=== PATIENT | female | born 1965 | race African-American/Black ===

== ENCOUNTER 2020-10-23 21:01 | Emergency (ER) | payer BC, SELFPAY ==
--- NOTE | ~2020-10-23 | XR_ITS ---
EXAMINATION: XR chest 1V portable EXAM DATE: 10/23/2020 21:41 INDICATION: Palpitations for one week. History of asthma. TECHNIQUE: Portable AP frontal chest x-ray was obtained. Comparison is made to prior examination from 05/01/2016. FINDINGS: There is low lung volume continued into the mildly enlarged cardiac silhouette, along with the AP technique. No confluent consolidation, pneumothorax or pleural effusion suspected. There are n o osseous abnormalities identified. IMPRESSION: 1. Low lung volume. 2. No acute cardiopulmonary findings. Reviewed, dictated and finalized at location [facility]
[2020-10-23 21:06] VITALS: BP 141/100; PULSE 85; RESP 18; TEMP 36.2; O2SAT 100
--- NOTE | 2020-10-23 21:31 | ECG_ITS ---
Measurements Intervals [place] Rate: 66 P: 39 [place]: 153 QRS: 30 QRSD: 112 T: 252 QT: 431 QTc: 454 Interpretive Statements SINUS RHYTHM POSSIBLE LEFT ATRIAL ENLARGEMENT LEFT VENTRICULAR HYPERTROPHY WITH ST-T CHANGE BORDERLINE ST-T WAVE ABNORMALITY- DIFFUSE LEADS BASELINE ARTIFACT- I, II, AVR, V3, V5 BORDERLINE ECG Electronically Signed On 10-24-2020 7:59:43 COMPUTER LAB ASSISTANT by Ron Murillo D.O.
[2020-10-23 21:46] LABS: Basophils Percent Auto 0.3 % (0.2-1.2); Eosinophils Absolute Auto 0.2 K/mm3 (0-0.3); Eosinophils Percent Auto 3.7 % (0-4.4); Hematocrit 35.7 % (37.0-47.0); Hemoglobin 12.2 g/dL (12.0-15.0); Immature Granulocyte Absolute 0.01 K/mm3 (0.00-0.031); Immature Granulocyte Percent A 0.2 % (0-0.5); Mean Corpuscular HGB Conc 34.2 g/dl (32-36); Mean Corpuscular Hemoglobin 30.3 pg (26-34); Mean Corpuscular Volume 88.6 fl (80-100); Mean Platelet Volume 10.2 fl (7.4-10.4); Monocytes Absolute Auto 0.5 K/mm3 (0.1-0.6); Monocytes Percent Auto 8.2 % (2.6-8.5); Neutrophils Absolute Auto 1.8 K/mm3 (1.3-6.7); Neutrophils Percent Auto 29.6 % (45.5-73.1); Platelet Count Result 226 k/mm3 (150-375); Red Blood Count 4.03 M/mm3 (4.2-5.4); Red Cell Distribution Width 13.3 % (11.5-14.5); White Blood Count 6.2 K/mm3 (4.5-10.0)
[2020-10-23 21:58] LABS: Alanine Aminotransferase 17 U/L (4-35); Albumin Level 4.3 g/dL (3.5-5.1); Alkaline Phosphatase 91 U/L (38-126); Anion Gap 8 mmol/L (8-16); Aspartate Amino Transferase 32 U/L (14-36); Bilirubin,Total 0.4 mg/dL (0.2-1.3); Blood Urea Nitrogen 20 mg/dL (7-17); Calcium 9.4 mg/dL (8.4-10.2); Carbon Dioxide 29 mmol/L (22-30); Chloride 104 mmol/L (98-107); Estimated CRCL calculation 48 ml/min; Estimated Glomerular Filt Rate 44; Glucose 93 mg/dL (65-105); Potassium 3.8 mmol/L (3.4-5.0); Sodium 141 mmol/L (137-145)
--- NOTE | 2020-10-23 22:05 | ED.GENADULT ---
HPI - General Adult General Chief complaint: Arrhythmia/Palpitations Stated complaint: Palpitations Time Seen by Provider: 10/23/20 21:26 History of Present Illness HPI narrative: Patient is a 55-year-old female who presents emerged part with chief complaint of palpitations. Patient reports that over the last several days she has felt as though her heart has been beating funny she is describes it as occasionally she will skip a beat and other times it feels as though it is fluttering. Patient states that she is not had any chest pain denies diaphoresis states she felt a little lightheaded at times. The patient denies syncope. Patient reports that she called her primary care physician's office who recommended that she come to the emergency department for further evaluation Related Data Allergies Allergy/AdvReac Type Severity Reaction Status Date / Time shellfish derived Allergy Unknown Verified 05/01/16 16:15 Review of Systems Review of Systems: Narrative: CONSTITUTIONAL: Denies fever, chills, or sweats. EYES: Denies visual changes, redness, or discharge. ENT: Denies rhinorrhea, congestion, sore throat, or otalgia. CARDIOVASCULAR: Denies chest pain, or edema. RESPIRATORY: Denies cough or dyspnea. GASTROINTESTINAL: Denies abdominal pain, nausea, vomiting, or diarrhea. GENITOURINARY: Denies dysuria or hematuria. SKIN: Denies rash or itching. MUSCULOSKELETAL: Denies back pain, joint pain, or myalgia. NEUROLOGIC: Denies headache, numbness, or weakness. PSYCHIATRIC: Denies anxiety or depression. A 10 system review of systems was completed on the patient and is negative except for what is stated in the HPI. Nursing and ancillary documentation was reviewed. PMFSH Comments Patient has past medical history for hypertension Social history the patient denies smoking or illicit drug use Exam Narrative: Exam Narrative: GENERAL: Well-appearing, well-nourished, and in no acute distress. HEAD: Normocephalic, atraumatic. EYES: PERRLA and EOMI. ENT: Nares clear, no rhinorrhea or epistaxis. Mucous membranes moist. NECK: Supple. CHEST: Clear to auscultation. No respiratory distress. HEART: Regular rate and rhythm. No murmur heard. Normal peripheral pulses. ABDOMEN: Soft, nontender, nondistended, normal active bowel sounds. EXTREMITIES: Normal range of motion. No edema. SKIN: Warm, dry, no rash. NEURO: No focal deficits. Alert and oriented x3. PSYCH: Normal mood and affect. Course Course Emergency Course: EKG is sinus rhythm rate of 66 While observing the patient on the monitor the patient has had several PVCs the patient has had no other dysrhythmia. Vital Signs Vital signs: Vital Signs Temperature 36.2 C L 10/23/20 21:06 Pulse Rate 85 10/23/20 21:06 Respiratory Rate 18 10/23/20 21:06 Blood Pressure 141/100 H 10/23/20 21:06 Pulse Oximetry 100 10/23/20 21:06 Temperature 36.2 C L 10/23/20 21:06 Pulse Rate 86 10/23/20 22:56 Respiratory Rate 16 10/23/20 22:56 Blood Pressure 127/83 10/23/20 22:56 Pulse Oximetry 98 10/23/20 22:56 Medical Decision Making Vital Signs Vital Signs: Vital Signs Temperature 36.2 C L 10/23/20 21:06 Pulse Rate 85 10/23/20 21:06 Respiratory Rate 18 10/23/20 21:06 Blood Pressure 141/100 H 10/23/20 21:06 Pulse Oximetry 100 10/23/20 21:06 Temperature 36.2 C L 10/23/20 21:06 Pulse Rate 86 10/23/20 22:56 Respiratory Rate 16 10/23/20 22:56 Blood Pressure 127/83 10/23/20 22:56 Pulse Oximetry 98 10/23/20 22:56 Lab Data Result diagrams: 10/23/20 21:40 10/23/20 21:40 Labs: Lab Results 10/23/20 10/23/20 Range/Units 21:40 21:40 WBC 6.2 (4.5-10.0) K/mm3 RBC 4.03 L (4.2-5.4) M/mm3 Hgb 12.2 (12.0-15.0) g/dL Hct 35.7 L (37.0-47.0) % MCV 88.6 (80-100) fl MCH 30.3 (26-34) pg MCHC 34.2 (32-36) g/dl RDW 13.3 (11.5-14.5) % Plt Count 226 (150-375) k/mm3 MPV 10.2 (7.4
[2020-10-23 22:09] LABS: Troponin I < 0.012 ng/mL (0.000-0.034)
[2020-10-23 22:56] VITALS: BP 127/83; PULSE 86; RESP 16; O2SAT 98
[2020-10-23] MEDS: SODIUM CHLORIDE 0.9% IV 1,000 ML 999 ML IV CONT (23:42)
== END 2020-10-24 00:15 | disposition home or self-care (01) ==
PROVIDERS: Emergency Provider Emergency Medicine; PCP Internal Medicine
DX: R00.2 Palpitations (principal); I49.3 Ventricular premature depolarization; R94.31 Abnormal electrocardiogram [ECG] [EKG]; I51.7 Cardiomegaly
CPT/HCPCS: 36415; 71045; 80053; 84484; 85025; 93005; 96360; 99284; J7030

== ENCOUNTER 2021-06-27 19:45 | Emergency (ER) | payer BC, SELFPAY ==
[2021-06-27] VITALS (9 sets, daily range): BP systolic 112–123; BP diastolic 79–82; PULSE 43–65; RESP 16–18; TEMP 36.2–36.9; O2SAT 99–100
--- NOTE | ~2021-06-27 | CT_ITS ---
EXAMINATION: CT brain wo con DATE: 06/27/2021 20:10 INDICATION: Right-sided headache. TECHNIQUE: Computed tomography (CT) of the head was performed without intravenous contrast. The mA wa s adjusted according to patient size. Iterative reconstruction technique was employed. The dose-lengt h product was 681.00 mGy-cm. COMPARISON: None FINDINGS: There is no intracranial hemorrhage, acute infarction, or abnormal intracranial mass lesion . The ventricles are normal in size. There is mucosal thickening in the paranasal sinuses. The mastoi d air cells are normal. IMPRESSION: 1. Normal brain. Reviewed, dictated and finalized at location A. IMPRESSION: 1. Normal brain.
--- NOTE | 2021-06-27 19:50 | ED.HA ---
HPI - Headache General Chief Complaint: Headache Stated Complaint: HEADACHE Time Seen by Provider: 06/27/21 19:49 History of Present Illness HPI Narrative: 55 yo female w/ h/o htn presents to the ED c/o headache. She has has a severe headache since yesterday. Sudden onset. located in the right occiput. Radiates to the right amish. Occasionally on the left as well. Associated with photophobia. She has never had this type of headache before. She tried tylenol yesterday. She reports intermittent migrating numbness for the past few weeks, none currently. No weakness, confusion, incoordination. Related Data Home Medications Medication Instructions Recorded Confirmed losartan-hydrochlorothiazide tablet 06/27/21 pantoprazole PO 06/27/21 Allergies Allergy/AdvReac Type Severity Reaction Status Date / Time shellfish derived Allergy Unknown Unknown Verified 06/27/21 21:47 Review of Systems Review of Systems: All systems reviewed & are unremarkable except as noted in HPI and below Constitutional: Constitutional: Denies chills, Denies fever(s) and Denies weakness Eyes: Eyes: Reports no additional eye complaints and Reports photophobia ENT: Denies vertigo and Denies sore throat Cardiovascular: Cardiovascular: Denies chest pain Respiratory: Respiratory: Denies dyspnea Gastrointestinal: Gastrointestinal: Denies abdominal pain and Denies nausea Genitourinary: Genitourinary: Reports no additional female genitourinary complaints Neurologic: Reports system reviewed and no additional complaints, except as documented [facility] Past Medical History Medical History HTN (hypertension) Social History Social History Smoking status: Never smoker Substance use: never Exam Const: General: healthy appearing, no acute distress and alert Orientation/consciousness: patient oriented x3 HENMT: Head: normal to inspection Resp: Effort & Inspection: normal respiratory effort Auscultation: clear to auscultation bilaterally Cardio: Rate: regular rate Rhythm: regular rhythm GI: GI Palp: Yes Soft to palpation and No Tenderness to palpation present (GI) Skin: General skin exam: normal color Neuro: General: patient oriented x3, moves all extremities, no focal motor deficits and CN's II-XI intact bilaterally Speech: normal speech Gait exam (Neuro): Normal gait present Extrem: General: normal to inspection Psych: Affect: Anxious affect present Course Vital Signs Vital signs: Vital Signs Temperature 36.9 C 06/27/21 21:39 Pulse Rate 43 L 06/27/21 21:39 Respiratory Rate 16 06/27/21 21:39 Blood Pressure 123/82 06/27/21 21:39 Pulse Oximetry 100 06/27/21 21:39 Temperature 36.9 C 06/27/21 21:39 Pulse Rate 43 L 06/27/21 21:39 Respiratory Rate 16 06/27/21 21:39 Blood Pressure 123/82 06/27/21 21:39 Pulse Oximetry 100 06/27/21 21:39 MDM - Headache MDM Narrative Medical decision making narrative: CT negative. Pain improving. Differential Diagnosis Differential diagnosis: Likely migraine, tension headache and subarachnoid hemorrhage Medical Records Attestation: I reviewed the patient's medical records. Lab Data Attestation: I reviewed the patient's lab results. Imaging Data Radiologist's impression: ITS Impressions Head CT 06/27/21 20:15 IMPRESSION: 1. Normal brain. Discharge Plan Discharge Clinical Impression: Headache Qualifiers: Headache type: unspecified Headache chronicity pattern: acute headache Intractability: not intractable Qualified Code(s): R51.9 - Headache, unspecified Patient Disposition: Home, Self-Care Condition: Stable Instructions: Acute Headache (ED) Prescriptions: No Action pantoprazole 40 mg tablet,delayed release (DR/EC) PO RF: 0 losartan-hydrochlorothiazide 50-12.5 mg tablet RF: 0 Follow-up/Refer
[2021-06-27] MEDS: METOCLOPRAMIDE HCL INJ 10 MG/2 ML VIAL IV PUSH (20:29)
[2021-06-27] MEDS: DEXAMETHASONE SOD PHOS INJ 4 MG/ML VIAL 10 MG IV PUSH (20:29)
[2021-06-27] MEDS: diphenhydrAMINE HCl INJ 50 MG/ML VIAL 25 MG IV PUSH (20:29)
[2021-06-27] MEDS: SODIUM CHLORIDE 0.9% IV 1,000 ML 999 ML IV CONT (20:29)
[2021-06-27] MEDS: KETOROLAC 30 MG/ML VIAL (*BKC) IV PUSH (21:34)
== END 2021-06-27 23:20 | disposition home or self-care (01) ==
PROVIDERS: Emergency Provider Emergency Medicine; PCP Internal Medicine
DX: R51.9 Headache, unspecified (principal); I10 Essential (primary) hypertension
CPT/HCPCS: 70450; 96361; 96374; 96375; 99284; J0131; J1100; J1200; J1885; J2765; J7030

== ENCOUNTER 2021-07-20 19:24 | Emergency (ER) | payer BC, SELFPAY ==
--- NOTE | ~2021-07-20 | XR_ITS ---
XR chest 1V portable DATE: 07/20/2021 20:56 INDICATION: Cough, fever, chills for 2 days. Hypertension. TECHNIQUE: Portable upright AP chest on 07/20/2021 at 1958 hours COMPARISON: 10/23/2020 and 05/01/2016 portable AP chest FINDINGS: There is chronic elevation left leaf of diaphragm 10/23/2020. Heart size appears borderline, not optimally evaluated on AP projection because of magnification. No pulmonary infiltrate or consolidation, pleural effusion or pulmonary vascular congestion or pneumo thorax. IMPRESSION: Chronic elevation of left diaphragm Reviewed, dictated and finalized at location A.
[2021-07-20 19:40] VITALS: BP 129/84; PULSE 99; RESP 16; TEMP 37.5; O2SAT 99
--- NOTE | 2021-07-20 20:58 | ED.GENADULT ---
HPI - General Adult General Chief complaint: Upper Respiratory Infection Stated complaint: COVID symptoms Time Seen by Provider: 07/20/21 20:23 Source: patient History of Present Illness HPI narrative: Patient is a 55 y/o female complaining cough, running nose and chills for last 2 days. She describes her cough as a dry cough. There is no alleviating or exacerbating factor. She has no fever, vomiting or diarrhea. Related Data Home Medications Medication Instructions Recorded Confirmed losartan-hydrochlorothiazide tablet 06/27/21 pantoprazole PO 06/27/21 Allergies Allergy/AdvReac Type Severity Reaction Status Date / Time shellfish derived Allergy Unknown Unknown Verified 06/27/21 21:47 Review of Systems Constitutional: Constitutional: Reports chills, Denies fever(s), Denies headache(s) and Denies weakness Eyes: Eyes: Denies blurry vision ENT: Denies headache(s), Reports nasal discharge and Denies neck pain Cardiovascular: Cardiovascular: Denies chest pain and Denies dyspnea Respiratory: Respiratory: Reports cough and Denies dyspnea Gastrointestinal: Gastrointestinal: Denies abdominal pain, Denies diarrhea, Denies nausea and Denies vomiting Genitourinary: Genitourinary: Denies hematuria and Denies dysuria Musculoskeletal: Musculoskeletal: Denies back pain and Denies neck pain Neurologic: Denies headache(s) and Denies weakness [facility] Past Medical History Medical History HTN (hypertension) Social History Social History Smoking status: Never smoker Substance use: never Exam Const: General: no acute distress and well developed Orientation/consciousness: oriented to person, oriented to place, oriented to time and patient oriented x3 HENMT: Head: normocephalic Ears: external ears normal General nose exam: Normal external nose present Eyes: General: appearance normal, both eyes and all related structures Conjunctivae: conjunctivae normal Neck: Neck: normal visual inspection and full ROM Chest: Chest palpation & inspection: normal inspection of the chest and no tenderness Resp: Effort & Inspection: normal respiratory effort Auscultation: clear to auscultation bilaterally Cardio: Rate: regular rate Rhythm: regular rhythm GI: GI Palp: No abdominal tenderness and Yes Soft to palpation Skin: General skin exam: normal color and turgor normal Neuro: General: oriented to person, oriented to place, oriented to time and patient oriented x3 Cognition (Neuro): normal cognition Extrem: General: normal to inspection, full ROM and no pedal edema Psych: Appearance: grossly normal Mental Status: mental status grossly normal Affect: normal affect Course Vital Signs Vital signs: Vital Signs Temperature 37.5 C 07/20/21 19:40 Pulse Rate 99 07/20/21 19:40 Respiratory Rate 16 07/20/21 19:40 Blood Pressure 129/84 07/20/21 19:40 Pulse Oximetry 99 07/20/21 19:40 Temperature 37.3 C 07/20/21 22:11 Pulse Rate 88 07/20/21 22:12 Respiratory Rate 18 07/20/21 22:12 Blood Pressure 133/78 07/20/21 22:12 Pulse Oximetry 96 07/20/21 22:12 Medical Decision Making Vital Signs Vital Signs: Vital Signs Temperature 37.5 C 07/20/21 19:40 Pulse Rate 99 07/20/21 19:40 Respiratory Rate 16 07/20/21 19:40 Blood Pressure 129/84 07/20/21 19:40 Pulse Oximetry 99 07/20/21 19:40 Temperature 37.3 C 07/20/21 22:11 Pulse Rate 88 07/20/21 22:12 Respiratory Rate 18 07/20/21 22:12 Blood Pressure 133/78 07/20/21 22:12 Pulse Oximetry 96 07/20/21 22:12 Lab Data Result diagrams: 07/20/21 20:58 07/20/21 20:58 Labs: Lab Results 07/20/21 07/20/21 07/20/21 Range/Units 20:58 20:58 21:34 WBC 5.0 (4.5-10.0) K/mm3 RBC 3.75 L (4.2-5.4) M/mm3 Hgb 11.3 L (12.0-15.0) g/dL Hct 33.7 L (37.0-47.0) % MCV
[2021-07-20 21:03] LABS: Basophils Percent Auto 0.2 % (0.2-1.2); Eosinophils Absolute Auto 0.2 K/mm3 (0-0.3); Eosinophils Percent Auto 3.6 % (0-4.4); Hematocrit 33.7 % (37.0-47.0); Hemoglobin 11.3 g/dL (12.0-15.0); Immature Granulocyte Absolute 0.01 K/mm3 (0.00-0.031); Immature Granulocyte Percent A 0.2 % (0-0.5); Lymphocytes Absolute Auto 1.75 K/mm3 (0.9-3.2); Lymphocytes Percent Auto 35.3 % (18.3-44.2); Mean Corpuscular HGB Conc 33.5 g/dl (32-36); Mean Corpuscular Hemoglobin 30.1 pg (26-34); Mean Corpuscular Volume 89.9 fl (80-100); Mean Platelet Volume 9.1 fl (7.4-10.4); Monocytes Absolute Auto 0.6 K/mm3 (0.1-0.6); Monocytes Percent Auto 12.5 % (2.6-8.5); Neutrophils Absolute Auto 2.4 K/mm3 (1.3-6.7); Neutrophils Percent Auto 48.2 % (45.5-73.1); Platelet Count Result 190 k/mm3 (150-375); Red Blood Count 3.75 M/mm3 (4.2-5.4); Red Cell Distribution Width 13.2 % (11.5-14.5)
[2021-07-20 21:19] LABS: Anion Gap 8 mmol/L (8-16); Blood Urea Nitrogen 14 mg/dL (7-17); Carbon Dioxide 28 mmol/L (22-30); Chloride 103 mmol/L (98-107); Estimated CRCL calculation 47 ml/min; Estimated Glomerular Filt Rate 44; Glucose 97 mg/dL (65-110); Sodium 139 mmol/L (137-145)
[2021-07-20 21:56] LABS: EDCOVIDSCREEN Positive (Negative)
[2021-07-20 22:11] VITALS: BP 130/70; PULSE 78; RESP 18; TEMP 37.3; O2SAT 97
[2021-07-20 22:12] VITALS: BP 133/78; PULSE 88; RESP 18; O2SAT 96
== END 2021-07-20 22:16 | disposition home or self-care (01) ==
PROVIDERS: Emergency Provider Emergency Medicine; PCP Internal Medicine
DX: U07.1 COVID-19 (principal); I10 Essential (primary) hypertension
CPT/HCPCS: 36415; 71045; 80048; 85025; 87426; 99283; C9803

== ENCOUNTER 2021-09-30 01:10 | Day surgery (SDC) | payer BC, SELFPAY ==
[2021-09-21 13:42] VITALS: BMI 32.6
[2021-09-30 08:29] VITALS: BP 129/81; PULSE 61; RESP 17; TEMP 36.2; O2SAT 100
[2021-09-30] MEDS: LACTATED RINGERS 1,000 ML 150 ML IV CONT (08:41)
--- NOTE | 2021-09-30 08:45 | WPDANESEPPF ---
Anes - Initial Pre Proc Eval Procedure: Operation Date: 09/30/21 09:45 Proposed Procedures p Screening Colonoscopy - Jose Benitez MD Date/Time: 09/30/21 08:45 Surgeon: Jose Benitez MD Pre Op Diagnosis: neoplasm screening Patient Data Age: 56 Gender: F Height: 1.73 m Weight: 96.3 kg Last Vital Signs Temp 36.2 C L 09/30/21 08:29 Pulse 61 09/30/21 08:29 Resp 17 09/30/21 08:29 BP 129/81 09/30/21 08:29 Pulse Ox 100 09/30/21 08:29 Allergies Allergy/AdvReac Type Severity Reaction Status Date / Time shellfish derived Allergy Unknown Unknown Verified 09/30/21 08:24 Home Medications Medication Instructions Recorded Confirmed Type losartan-hydrochlorothiazide 1 tablet PO DAILY 06/27/21 09/30/21 History pantoprazole 40 mg PO DAILY 06/27/21 09/30/21 History albuterol sulfate 90 mcg INHALATION DAILY PRN 09/21/21 09/30/21 History cholecalciferol (vitamin D3) 50 mcg PO DAILY 09/21/21 09/30/21 History multivitamin 1 tablet PO DAILY 09/21/21 09/30/21 History vitamin F22-nrqqn acid 1 tablet SUBLINGUAL DAILY 09/21/21 09/30/21 History Patient hx anesthesia problems: none Family hx anesthesia problems: none Results Review: All pre-operative results and documents have been reviewed as part of the pre-operative evaluation. [facility] Past Medical History Medical History (Updated 09/30/21 @ 08:45 by Lavell Galan MD) HTN (hypertension) Obesity Surgical History Surgical History (Updated 09/30/21 @ 08:45 by Lavell Galan MD) H/O wrist surgery Social History Social History Smoking status: Never smoker Alcohol intake: current Substance use: never Living arrangements: with family Spiritual care concerns: No Anes - Eval Final PreProcedure Day of Procedure 09/30/21 08:45 Patient weight: obese Heart: regular rate and rhythm Lungs: clear to auscultation Airway: Mallampati scale class II Neurological: alert and oriented Last oral intake: >/= 8 hours ASA classification: II Emergent: no Anesthetic plan: proceed Anesthesia type and monitoring: general GIVS and standard monitoring Results Review: All pre-operative results and documents have been reviewed as part of the pre-operative evaluation. Informed Consent: The patient's anesthetic plan and its attendant risks and benefits were discussed with the patient/family/POA. Questions were solicited and answers provided to the satisfaction of the patient/family/POA.
--- NOTE | 2021-09-30 08:56 | PM.HPGS ---
History of Present Illness History of Present Illness Consent: Risks, benefits, and alternatives have been discussed and questions answered. Patient agrees to proceed with procedure. Chief complaint: neoplasm screening Narrative: Gail Amanda is a 56 year old female here for screening colonoscopy, last one 3 years ago. Review of Systems Constitutional: Constitutional: Denies headache(s) and Denies weakness Eyes: Eyes: Denies blurry vision ENT: Reports Normal hearing present, Denies headache(s) and Denies neck pain Cardiovascular: Cardiovascular: Denies chest pain and Denies dyspnea Respiratory: Respiratory: Denies dyspnea Gastrointestinal: Gastrointestinal: Reports no additional gastrointestinal complaints Genitourinary: Genitourinary: Denies dysuria Musculoskeletal: Musculoskeletal: Denies neck pain Integumentary/Breasts: Skin/Breast: Denies dry skin Neurologic: Reports Normal hearing present, Denies headache(s) and Denies weakness Psychiatric: Psychiatric: Denies anxiety Endocrine: Endocrine: Denies change in body appearance Hematologic/Lymphatic: Hematologic/Lymphatic: Denies easy bleeding Allergic/Immunologic: Allergic/Immunologic: Denies urticaria PMFSH Past Medical History Medical History (Updated 09/30/21 @ 08:56 by Jose Benitez MD) Colon cancer screening HTN (hypertension) Obesity Surgical History Surgical History (Updated 09/30/21 @ 08:45 by Lavell Galan MD) H/O wrist surgery Social History Social History Smoking status: Never smoker Alcohol intake: current Substance use: never Living arrangements: with family Spiritual care concerns: No Meds Home Medications and Allergies Home Medications Medication Instructions Recorded Confirmed Type losartan-hydrochlorothiazide 1 tablet PO DAILY 06/27/21 09/30/21 History pantoprazole 40 mg PO DAILY 06/27/21 09/30/21 History albuterol sulfate 90 mcg INHALATION DAILY PRN 09/21/21 09/30/21 History cholecalciferol (vitamin D3) 50 mcg PO DAILY 09/21/21 09/30/21 History multivitamin 1 tablet PO DAILY 09/21/21 09/30/21 History vitamin U51-jtwdd acid 1 tablet SUBLINGUAL DAILY 09/21/21 09/30/21 History Allergies Allergy/AdvReac Type Severity Reaction Status Date / Time shellfish derived Allergy Unknown Unknown Verified 09/30/21 08:24 Vital Signs Vital Signs - 24 hr 09/30/21 08:29 Temperature 97.1 F L Pulse Rate 61 Respiratory Rate 17 Blood Pressure 129/81 Pulse Oximetry 100 Exam Const: General: comfortable and no acute distress HENMT: General nose exam: Normal nares present Eyes: General: appearance normal, both eyes and all related structures Neck: Neck: no JVD Resp: Auscultation: clear to auscultation bilaterally Cardio: Rate: regular rate Rhythm: regular rhythm GI: Inspection: non-distended GI Palp: Yes Soft to palpation Skin: General skin exam: normal color Neuro: General: gait normal Speech: normal speech Extrem: General: normal to inspection Psych: Mental Status: mental status grossly normal Assessment and Plan Assessment and plan (1) Colon cancer screening: Code(s): Z12.11 - Encounter for screening for malignant neoplasm of colon Status: Acute Assessment and Plan: colonoscopy
[2021-09-30 09:19] VITALS: BP 84/55; PULSE 69; RESP 19; O2SAT 98
[2021-09-30 09:29] VITALS: BP 105/72; PULSE 64; RESP 20; O2SAT 96
[2021-09-30 09:41] VITALS: BP 112/78; PULSE 48; RESP 20; O2SAT 96
== END 2021-09-30 09:50 | disposition home or self-care (01) ==
PROVIDERS: PCP Internal Medicine; Visit Provider Internal Medicine Gastroenterology
PROC: 0DJD8ZZ Inspection of Lower Intestinal Tract, Via Natural or Artificial Opening Endoscopic (ICD-10-PCS; CPT 45378; principal; 2021-09-30 09:45)
DX: Z12.11 Encounter for screening for malignant neoplasm of colon (principal); K57.30 Diverticulosis of large intestine without perforation or abscess without bleeding; K64.8 Other hemorrhoids; I10 Essential (primary) hypertension; Z79.51 Long term (current) use of inhaled steroids; E66.9 Obesity, unspecified; Z68.32 Body mass index [BMI] 32.0-32.9, adult
CPT/HCPCS: 45378; J2704; J7120

== ENCOUNTER 2023-01-31 15:30 | Outpatient (RCR) | payer BC, SELFPAY ==
--- NOTE | 2022-12-27 09:45 | PTOPEVAL1 ---
Assessment and note entered by Eveline Unger, PT Evaluation Information Assessment Status Evaluation Diagnosis L knee pain Onset Oct 2022 Subjective Information pain off/on in L knee for years, it pops in the knee, no injury to knee; going down the stairs, knee pops and some pain; L TKR in 2014; do not do any exercises for knees; no imaging or tests done; Reported Pain Level Pain Score Self Report Additional Pain Score Comments pain range in past week 0-7/10; burning, sharp- medial knee; increase pain stairs, stand to sit- have to use her arms; walking is OK, pain comes on with bending; decrease pain rest, use hand rails; take naproxen PRN; discussed use of heat/ice PRN; sleeping is OK; knee does not swell; Assessment PT Clinical Summary Gail has the diagnosis of L knee pain. Her history includes R TKR in 2014, R femur ORIF, R knee arthroscopy and B bunionectomy. Gradual increase in her L knee pain. 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 Has not been riding her motorcycle due to knee pain. With the evaluation, she has crepitis, popping and grinding over L knee with flexion and extension motions; she has good flexibility of her hips, knees and ankles; slight decreased strength of hip adduction and single leg standing; Skilled PT services are indicated for treatment of L knee pain--patellar tendonitis due to poor tracking; modalities for pain, therapeutic exercises to increase hip and knee strength and education for home exercises. Plan of Care Interventions Electrical Stimulation,Hot Pack/Cold Pack,Manual Therapy,Neuro Re-education,Patient/Caregiver Education,Therapeutic Activities,Therapeutic Exercise,Ultrasound,Other Other Interventions taping PT Services Indicated Yes Treatment Frequency and 1x/wk for 5 weeks Duration These treatments will address the objective and functional deficits as defined above. The patient will be advanced safely and appropriately in order for the patient to progress towards his/her prior level of function. Additional exercises will be introduced and as well as a comprehensive home exercise program upon discharge, if needed, ?to ensure carryover of functional gains achieved in the clinic. This treatment plan has been reviewed and agreement upon by the patient.
--- NOTE | 2023-01-06 16:10 | PCPTNOTE ---
Pt did not show for appt. today. Attempted to call with reminder of her next appt. and her voice mail is full.
--- NOTE | 2023-01-10 14:13 | PCPTNOTE ---
Patient called & cancelled scheduled appointment this date due to work.
--- NOTE | 2023-01-18 16:49 | PCPTNOTE ---
Patient did not show up for scheduled appointment this date. Called Pt, unable to leave voicemail due to the mail box being full. Pt is scheduled on 01/27/23 @12:30p however according to the Pt's calendar in her chart she is going to be out of town. Kept appointment due to being unable to get ahold of Pt. This is her first N/S.
--- NOTE | 2023-01-27 12:53 | PCPTNOTE ---
Patient did not show up for scheduled appointment this date. Per patient's chart she was suppose to be out of town this week. Called patient and was unable to leave a message, due to full mailbox.
--- NOTE | 2023-01-31 16:30 | PCPTNOTE ---
pt did not show for today's reeval appt;
--- NOTE | 2023-02-01 16:20 | PCPTNOTE ---
PHYSICAL THERAPY DISCHARGE 02-01-23 Attending Provider: James Padron MD Patient:Gail Amanda Date of :1965 Gail has not returned for therapy treatment since the initial PT evaluation on December 27, for the diagnosis of L knee pain. She had 3 no show and 1 canceled appointment. Therefore, she will be discharged at this time. The goals were not assessed. Thank you for referring Ms. Amanda to [facility].
== END 2023-03-14 12:44 | disposition home or self-care (01) ==
LOC: ANHPT 15:30
PROVIDERS: PCP Internal Medicine; Visit Provider Internal Medicine
DX: M25.562 Pain in left knee (principal)
CPT/HCPCS: 97161; 99199

== ENCOUNTER → 2023-07-18 15:54 | Outpatient (CLI) | payer BC, SELFPAY ==
--- NOTE | ~2023-07-18 | US_ITS ---
Renal-Bladder ultrasound Clinical History: Hypertensive chronic kidney disease Technique: Real-time sonographic imaging of the kidneys and urinary bladder was performed. Findings: The right kidney measures 10.2 cm in length and the left kidney measures 9.9 cm. There is n o hydronephrosis or renal calculus identified. Renal cortical echogenicity is within normal limits. N o renal mass lesion is identified. The urinary bladder is moderately distended at the time of this exam. No intraluminal echoes are iden tified. No abnormal wall thickening is seen. Impression: Unremarkable ultrasound of the kidneys and urinary bladder. Reviewed, dictated and finalized at location M. Impression: Unremarkable ultrasound of the kidneys and urinary bladder.
== END ==
PROVIDERS: PCP Internal Medicine Nephrology; Visit Provider Internal Medicine Nephrology
DX: I12.9 Hypertensive chronic kidney disease with stage 1 through stage 4 chronic kidney disease, or unspecified chronic kidney disease (principal); N18.32 Chronic kidney disease, stage 3b
CPT/HCPCS: 76775

== ENCOUNTER 2024-05-11 21:58 | Emergency (ER) | payer BC, SELFPAY ==
[2024-05-11 22:01] VITALS: BP 127/80; PULSE 91; RESP 20; TEMP 35.9; O2SAT 98
[2024-05-12 00:48] VITALS: BP 109/70; PULSE 61; RESP 16; O2SAT 100
[2024-05-12 01:01] LABS: Basophils Percent Auto 0.4 % (0.2-1.2); Eosinophils Absolute Auto 0.2 K/mm3 (0-0.3); Eosinophils Percent Auto 3.8 % (0-4.4); Hematocrit 34.3 % (37.0-47.0); Hemoglobin 11.3 g/dL (12.0-15.0); Immature Granulocyte Absolute 0.02 K/mm3 (0.00-0.031); Immature Granulocyte Percent A 0.4 % (0-0.5); Lymphocytes Absolute Auto 3.04 K/mm3 (0.9-3.2); Lymphocytes Percent Auto 54.9 % (18.3-44.2); Mean Corpuscular HGB Conc 32.9 g/dl (32-36); Mean Corpuscular Hemoglobin 29.1 pg (26-34); Mean Corpuscular Volume 88.4 fl (80-100); Mean Platelet Volume 10.4 fl (7.4-10.4); Monocytes Absolute Auto 0.5 K/mm3 (0.1-0.6); Monocytes Percent Auto 9.2 % (2.6-8.5); Neutrophils Absolute Auto 1.7 K/mm3 (1.3-6.7); Neutrophils Percent Auto 31.3 % (45.5-73.1); Platelet Count Result 207 k/mm3 (150-375); Red Blood Count 3.88 M/mm3 (4.2-5.4); Red Cell Distribution Width 13.3 % (11.5-14.5); White Blood Count 5.5 K/mm3 (4.5-10.0)
[2024-05-12 01:19] LABS: INR 0.9
[2024-05-12 01:27] LABS: Anion Gap 7 mmol/L (4-12); Blood Urea Nitrogen 27 mg/dL (7-17); Calcium 9.2 mg/dL (8.4-10.2); Carbon Dioxide 27 mmol/L (22-30); Chloride 107 mmol/L (98-107); Estimated CRCL calculation 39 ml/min; Estimated Glomerular Filt Rate 35; Glucose 101 mg/dL (65-110); Potassium 3.9 mmol/L (3.4-5.0); Sodium 141 mmol/L (137-145)
[2024-05-12 01:43] LABS: D Dimer 0.59 ug/mL (<0.48)
[2024-05-12 01:52] VITALS: BP 117/71; PULSE 60; RESP 16; O2SAT 100
--- NOTE | 2024-05-12 02:00 | ED.EXTPRO ---
HPI - Extremity Problem General Chief complaint: Extremity Problem,Nontraumatic Stated complaint: Left thigh pain, no injury Time Seen by Provider: 05/12/24 00:38 Source: patient Limitations: no limitations History of Present Illness HPI Narrative: Patient is a 58-year-old female presents to the emergency department complaining of left medial thigh pain. Patient states started earlier tonight around 5-6 hours ago while her niece was sitting in her, she got scared that it might be a blood clot and came in for further evaluation. Patient knows somebody had a blood clot which is why she was afraid. Patient denies history of blood clots. Patient notes that the pain is overall resolved and has not returned. Patient is being ambulatory. Patient denies any obvious injuries. Patient denies leg swelling. Patient admits to recent long distance travel on a motorcycle [place] the [place]. Patient denies chest pain, difficulty breathing, numbness, weakness. Related Data Home Medications Medication Instructions Recorded Confirmed losartan 50 mg-hydrochlorothiazide 1 tablet PO DAILY 06/27/21 05/18/23 12.5 mg tablet pantoprazole 40 mg tablet,delayed 40 mg PO DAILY 06/27/21 05/18/23 release atorvastatin 10 mg tablet 10 mg PO DAILY 05/18/23 05/18/23 bupropion HCl 300 mg 24 hr tablet, 300 mg PO QAM 05/18/23 05/18/23 extended release Allergies Allergy/AdvReac Type Severity Reaction Status Date / Time shellfish derived Allergy Unknown Unknown Verified 05/11/24 22:05 Review of Systems Review of Systems: A 10 system review of systems was completed on the patient and is negative except for what is stated in the HPI. Nursing and ancillary documentation was reviewed. REPLACED BY [facility] Past Medical History Medical History (Updated 05/12/24 @ 02:01 by Wagner Conklin DO) Asthma CKD (chronic kidney disease) Colon cancer screening Depression HTN (hypertension) Hyperlipidemia Obesity Surgical History Surgical History (System 05/23/23 @ 12:17 by Michaela Greer) H/O wrist surgery Family History Family History (System 05/23/23 @ 12:17 by Michaela Greer) Mother Diabetes mellitus Hypertension Father Hypertension Heart disease Kidney disease Social History Social History (System 05/23/23 @ 12:17 by Michaela Greer) Smoking status: Never smoker Alcohol intake: current Substance use: never Lack of Transportation: No Lack of Food: Never True Current Housing: I Have Housing Concerned About Future Housing: No Difficulty Paying Gas/Electric Bills: No Difficulty Paying for Meds: No Currently Unemployed: No Education: Master's Degree or Higher Difficulty w/ Childcare or Family Care: No Living arrangements: with family Occupation/Education: occupation Gender identity (if verbalized by the patient): Female Spiritual care concerns: No Comments At time of signature, I have reviewed and agree with nursing past medical, surgical, social and family history unless otherwise noted. Please see the nursing chart for further information. There is no relevant family history pertinent to the presenting complaint. Exam Narrative: CONST: No acute distress. Well nourished. HENMT: Head is normocephalic and atraumatic. EYES: No conjunctival icterus, injection, or pallor. PERRL. NECK: No meningeal signs. RESP: Able to speak in full sentences. Normal respiratory effort. CARDIO: Regular rate. Regular rhythm. 2+ DP pulses bilaterally. GI: Nondistended. SKIN: No rashes or lesions noted on exposed skin. NEURO: Oriented x3. Moves all extremities. EXTREM/MSK/BACK: No pedal edema. No tenderness palpation of the bilateral lower extremities. PSYCH: Normal affect. Course Vital Signs Vital signs: Vital Signs Temperature 96.7 F L 05/11/24 22:01 Pulse Rate 91 05/11/24 22:01 Respiratory Rate 20 05/11/24 22:01 Blood Pressure 127/80 05/11/24 22:01 Pulse Oximetry 98 05/11/24
== END 2024-05-12 02:14 | disposition home or self-care (01) ==
PROVIDERS: Physician Assistant; Emergency Provider Student in an Organized Health Care Education/Training Program; PCP Internal Medicine Nephrology
DX: M79.652 Pain in left thigh (principal); J45.909 Unspecified asthma, uncomplicated; I12.9 Hypertensive chronic kidney disease with stage 1 through stage 4 chronic kidney disease, or unspecified chronic kidney disease; N18.9 Chronic kidney disease, unspecified; E78.5 Hyperlipidemia, unspecified; E66.9 Obesity, unspecified; Z68.34 Body mass index [BMI] 34.0-34.9, adult; Z79.899 Other long term (current) drug therapy
CPT/HCPCS: 36415; 80048; 85025; 85380; 85610; 85730; 99283